=== PATIENT | female | born 1970 | race Caucasian/White ===

== ENCOUNTER 2016-09-26 14:14 | Outpatient (CLI) | payer OTHER ==
--- NOTE | 2016-09-26 16:25 | DIAGNOSTIC IMAGING REPORT ---
PROCEDURE: XR LUMBAR SPINE 2 OR 3 VIEWS INDICATION: SEVERE LOWER BACK PX, initial encounter TECHNIQUE: Three views. COMPARISON: Lumbar spine MRI 07/26/2012 FINDINGS: Stable grade 1 L5-S1 retrolisthesis with progression of moderate disc space narrowing. No fracture or suspicious osseous lesions. Cholecystectomy IMPRESSION: 1. Grade 1 L5-S1 retrolisthesis with progression of moderate L5-S1 disc space narrowing
== END 2016-09-26 23:00 ==
LOC: XR SRH 14:14
DX: M43.17 Spondylolisthesis, lumbosacral region (principal); M51.27 Other intervertebral disc displacement, lumbosacral region